=== PATIENT | female | born 1950 | race American Indian/Alaskan Native ===

== ENCOUNTER 2020-08-02 04:36 | Emergency (ER) | payer MEDICARE ==
[2020-08-02 04:43] VITALS: BP 155/77
[2020-08-02] MEDS ORDERED: FAMOTIDINE 20 MG TAB PO ONE (05:00)
[2020-08-02] MEDS ORDERED: diphenhydrAMINE 25 MG CAP PO ONE (05:00)
[2020-08-02] MEDS ORDERED: predniSONE 20 MG TAB PO ONE (05:00)
--- NOTE | 2020-08-02 05:46 | Emergency Department Report ---
ED General Adult HPI - General Chief complaint: Allergic Reaction Stated complaint: ALLERGIC REACTION Time Seen by Provider: 08/02/20 05:40 Source: patient Mode of arrival: Ambulatory Limitations: No Limitations - History of Present Illness Initial comments: Patient is a 61-year-old -[place] female who presents for facial swelling after having eyebrows arched today. States stinging and itching to eyebrows , started to notice swelling after scratching. Now with redness and worsening itching. There is no decreased vision. There is no dizziness, lightheadedness, no nausea vomiting, no chest pain, or shortness of breath. Patient did wash with soap and water. Patient has history of hypertension, GERD, and migraine headaches. - Related Data Previous Rx's Medication Instructions Recorded Last Taken Type Amoxicillin/K Clav Tab [Augmentin 1 tab PO Q12HR #20 tab 02/10/15 Unknown Rx 875 mg] HYDROcodone/APAP 10-325 [[place] 1 each PO Q6HR PRN #16 tablet 02/10/15 Unknown Rx 10/325] Promethazine Dm (Nf) [Phenergan Dm 5 ml PO Q6H PRN #120 ml 02/10/15 Unknown Rx 6.25/15 mg 5 ml] Amoxicillin/K Clav Tab [Augmentin 1 tab PO Q12HR #20 tab 07/25/15 Unknown Rx 875 mg] Cyclobenzaprine [Flexeril] 10 mg PO BID PRN #20 tablet 07/25/15 Unknown Rx Ibuprofen [Motrin 800 MG tab] 1 tab PO Q8HR PRN #30 tablet 07/25/15 Unknown Rx Ibuprofen [Motrin] 600 mg PO Q8H PRN #14 tablet 03/04/16 Unknown Rx cephALEXin [Keflex] 500 mg PO Q12HR #10 cap 03/04/16 Unknown Rx hydrOXYzine HCL [Atarax] 25 mg PO Q6HR #20 tablet 09/26/18 Unknown Rx predniSONE [Deltasone] 20 mg PO QDAY #5 tab 09/26/18 Unknown Rx Famotidine [Pepcid] 20 mg PO BID #12 tablet 08/02/20 Unknown Rx cephALEXin [Keflex] 500 mg PO Q8HR 7 Days #21 cap 08/02/20 Unknown Rx diphenhydrAMINE [Benadryl CAP] 25 mg PO Q8HR PRN #15 capsule 08/02/20 Unknown Rx predniSONE [Deltasone] 20 mg PO QDAY #5 tab 08/02/20 Unknown Rx Allergies Allergy/AdvReac Type Severity Reaction Status Date / Time lisinopril Allergy Rash Verified 09/26/18 17:55 Sulfa (Sulfonamide Allergy Angioedema Verified 09/26/18 17:55 Antibiotics) ED Review of Systems ROS: Stated complaint: ALLERGIC REACTION Other details as noted in HPI Constitutional: other (facial swelling and erythema ). denies: chills, fever Eyes: denies: eye pain, eye discharge, vision change ENT: denies: ear pain, throat pain Respiratory: denies: cough, shortness of breath, wheezing Cardiovascular: denies: chest pain, palpitations Endocrine: no symptoms reported Gastrointestinal: denies: abdominal pain, nausea, vomiting, diarrhea Genitourinary: denies: urgency, dysuria, discharge Musculoskeletal: denies: back pain, joint swelling, arthralgia Skin: pruritus, other (facial erythema ) Neurological: denies: headache, weakness, paresthesias, vertigo Psychiatric: denies: anxiety, depression Hematological/Lymphatic: denies: easy bleeding, easy bruising ED Past Medical Hx - Past Medical History Hx Hypertension: Yes Hx GERD: Yes Hx Headaches / Migraines: Yes Additional medical history: cHRONIC PAIN - Surgical History Additional Surgical History: gastric bypass, back surgery, L knee replacement - Social History Smoking Status: Never Smoker Substance Use Type: None - Medications Home Medications: Home Medications Medication Instructions Recorded Confirmed Last Taken Type Amoxicillin/K Clav Tab [Augmentin 1 tab PO Q12HR #20 tab 02/10/15 Unknown Rx 875 mg] HYDROcodone/APAP 10-325 [[place] 1 each PO Q6HR PRN #16 tablet 02/10/15 Unknown Rx 10/325] Promethazine Dm (Nf) [Phenergan Dm 5 ml PO Q6H PRN #120 ml 02/10/15 Unknown Rx 6.25/15 mg 5 ml] Amoxicillin/K Clav Tab [Augmentin 1 tab PO Q12HR #20 tab 07/25/15 Unknown Rx 875 mg] Cyclobenzaprine [Flexeril] 10 mg PO BID PRN #20 tablet 07/25/15 Unknown Rx Ibuprofen [Motrin 800 MG tab] 1 tab PO Q8HR PRN #30 tablet 03/15/16 Unknown Rx Ibuprofen [Motrin] 600 mg PO Q8H PRN #14 tablet 03/04/16 Unknown Rx cephALEXin [Keflex] 500 mg PO Q12HR #10 cap 03/04/16 Unknown Rx hydrOXYzine HCL [Atarax] 25 mg PO Q6HR #20 tablet 09/26/18 Unknown Rx predniSONE [Deltasone] 20 mg PO QDAY #5 tab 09/26/18 Unknown Rx Famotidine [Pepcid] 20 mg PO BID #12 tablet 08/02/20 Unknown Rx cephALEXin [Keflex] 500 mg PO Q8HR 7 Days #21 cap 08/02/20 Unknown Rx diphenhydrAMINE [Benadryl CAP] 25 mg PO Q8HR PRN #15 capsule 08/02/20 Unknown Rx predniSONE [Deltasone] 20 mg PO QDAY #5 tab 08/02/20 Unknown Rx ED Physical Exam - General Limitations: No Limitations General appearance: alert, in no apparent distress - Head Head exam: Present: normocephalic, normal inspection - Eye Eye exam: Present: normal appearance, PERRL, EOMI, periorbital swelling (facial swelling forehead extending to bila check including periorbital , no eye entrapment no pain or weeping ). Absent: scleral icterus, conjunctival injection, nystagmus, periorbital tenderness Pupils: Present: normal accommodation - ENT ENT exam: Present: normal exam, normal orophraynx, mucous membranes moist, TM's normal bilaterally, normal external ear exam - Neck Neck exam: Present: normal inspection, full ROM. Absent: tenderness, lymphadenopathy - Respiratory Respiratory exam: Present: normal lung sounds bilaterally. Absent: respiratory distress, wheezes, stridor, chest wall tenderness - Cardiovascular Cardiovascular Exam: Present: regular rate, normal rhythm, normal heart sounds. Absent: systolic murmur, diastolic murmur, rubs, gallop - GI/Abdominal GI/Abdominal exam: Present: soft, normal bowel sounds. Absent: distended, tenderness - Rectal Rectal exam: Present: deferred - Extremities Exam Extremities exam: Present: normal inspection, full ROM. Absent: tenderness - Back Exam Back exam: Present: normal inspection, full ROM. Absent: tenderness, rash noted - Neurological Exam Neurological exam: Present: alert, oriented X3, CN II-XII intact, normal gait - Expanded Neurological Exam Expanded Patient oriented to: Present: person, place, time Speech: Present: fluid speech Cranial nerves: EOM's Intact: Normal, Gag Reflex: Normal, Tongue Deviation: Normal, Nystagmus: Normal, Facial Sensation: Normal Best Eye Response ([place]): (4) open spontaneously Best Motor Response (Josu[place]): (6) obeys commands Best Verbal Response (Josué): (5) oriented [place] Total: 15 - Psychiatric Psychiatric exam: Present: normal affect, normal mood - Skin Skin exam: Present: warm, dry, intact, erythema (facial ), urticaria. Absent: rash ED Course Vital Signs 08/02/20 04:38 Temperature 98.2 F Pulse Rate 107 H Respiratory 16 Rate Blood Pressure 155/77 O2 Sat by Pulse 96 Oximetry ED Medical Decision Making - Medical Decision Making This is a contact versus allergic dermatitis. Symptoms are improved with Benadryl, Pepcid, and prednisone given in ED. Plan DC to home with prescriptions. Patient will follow up with PCP in 2 to 3 days. Continue to wash face with mild soap and water as directed, avoid irritants, only use certified aestheticians, return to emergency department should symptoms worsen. Patient verbalized agreement and understanding with discharge plan. Patient will be DC'd home in stable condition at this time. Critical care attestation.: If time is entered above; I have spent that time in minutes in the direct care of this critically ill patient, excluding procedure time. ED Disposition Clinical Impression: Allergic dermatitis, Facial cellulitis Disposition: DC-01 TO HOME OR SELFCARE Is pt being admited?: No Does the pt Need Aspirin: No Condition: Stable Instructions: Contact Dermatitis, [id number], Cellulitis, Adult, [id number] Additional Instructions: return to emergency immediately if symptoms worsen Prescriptions: diphenhydrAMINE [Benadryl CAP] 25 mg PO Q8HR PRN #15 capsule PRN Reason: itching allergies predniSONE [Deltasone] 20 mg PO QDAY #5 tab cephALEXin [Keflex] 500 mg PO Q8HR 7 Days #21 cap Famotidine [Pepcid] 20 mg PO BID #12 tablet Referrals: OMARI PHILLIPS MD [Referring] - 3-5 Days Forms: Work/School Release Form(ED) Time of Disposition: 05:54
[2020-08-02] MEDS ORDERED: cephALEXin 500 MG CAP PO ONE (06:01)
[2020-08-02] MEDS ORDERED: DIPHtheria,PERTUSSIS(ACELL),TETANUS VACCINE/PF 0.5 ML VIAL IM ONE (06:01)
== END 2020-08-02 06:18 | disposition home or self-care (01) ==
LOC: ED 04:36
DX: L03.211 Cellulitis of face (principal); L23.9 Allergic contact dermatitis, unspecified cause; I10 Essential (primary) hypertension; K21.9 Gastro-esophageal reflux disease without esophagitis; G43.909 Migraine, unspecified, not intractable, without status migrainosus; Z79.899 Other long term (current) drug therapy; Z88.2 Allergy status to sulfonamides; Z88.8 Allergy status to other drugs, medicaments and biological substances
CPT/HCPCS: 90471; 90715; 99282; J7512